=== PATIENT | male | born 1960 | race African-American/Black ===

== ENCOUNTER 2023-11-04 17:15 | Emergency (ER) | payer MEDICAID ==
[~2023-11-04] VITALS: Ht 177.8 cm; Wt 92.0 kg
[2023-11-04 17:19] VITALS: O2SAT 99
[2023-11-04] MEDS: LIDOCAINE HCL/PF 1% 10 MG/ML 5ML VIAL INFIL ONE (18:15)
[2023-11-04] MEDS: TETANUS, DIPHTHERIA, PERTUSSIS VAC/PF 0.5ML (>10YR OLD) IM ONE (18:15)
[2023-11-04] MEDS: ACETAMINOPHEN 500MG TABLET PO ONE (19:15)
[2023-11-04] MEDS ORDERED: MORPHINE SULFATE 4 MG/ML INJ (FOR IV/IM USE) IV ONE ×2 (19:45→20:30)
[2023-11-04] MEDS: PROPOFOL 200MG/20ML VIAL IV ONE ×3 (20:50→21:55)
[2023-11-04] MEDS: KETOROLAC 30MG/ML VIAL IV ONE (20:50)
[2023-11-04 22:40] VITALS: BP 145/72; PULSE 63; RESP 18; TEMP 98.5
== END 2023-11-04 22:42 | disposition left against medical advice (07) ==
LOC: ER 17:15
DX: S42.292A Other displaced fracture of upper end of left humerus, initial encounter for closed fracture (principal); S01.511A Laceration without foreign body of lip, initial encounter; S01.112A Laceration without foreign body of left eyelid and periocular area, initial encounter
CPT/HCPCS: 73030; 70450; 70486; 72125; 90715; 12011; 24530; 96374; 99152; 99285; J1885; J3490; J2704; Z7610 ×4; J2270